=== PATIENT | male | born 1985 | race Caucasian/White ===

== ENCOUNTER → 2016-12-08 | Outpatient (CLI) | payer BC ==
--- NOTE | 2016-12-08 10:53 | US ---
EXAMINATION TYPE: US liver DATE OF EXAM: 12/08/2016 8:25 AM COMPARISON: NONE CLINICAL HISTORY: R74.8 elevated liver enzymes. EXAM MEASUREMENTS: Liver Length: 16.9 cm Gallbladder Wall: 0.3 cm CBD: 0.3 cm Right Kidney: 11.9 x 4.2 x 5.2 cm TECHNOLOGIST IMPRESSION: Pancreas: obscured by overlying bowel Liver: attenuating, hypoechoic area adjacent to GB = 2.0 x 1.7 x 2.7cm, probable focal sparing Gallbladder: no evidence of stones Evidence for sonographic Aiken's sign: No CBD: wnl Right Kidney: no evidence of hydronephrosis or mass IMPRESSION: 1. No acute changes abdomen right upper quadrant ultrasound. 2. Some fatty sparing may be adjacent to the gallbladder bed fossa within the liver. 3. Mild fatty infiltration of the liver
== END | disposition home or self-care (01) ==
LOC: RADUSWWP 08:06
PROVIDERS: ATTEND Family Medicine
DX: R74.8 Abnormal levels of other serum enzymes (principal)
CPT/HCPCS: 76705

== ENCOUNTER → 2017-09-22 | Outpatient (CLI) | payer BC ==
[2017-09-22 18:29] LABS: Basophils # (A) 0.1 k/uL (0-0.2); Basophils % (A) 1 %; CH 29.7; CHCM 34.5; Eosinophils # (A) 0.2 k/uL (0-0.7); Eosinophils % (A) 3 %; HCT 53.3 % (39.0-53.0); HDW 2.78; HGB 17.7 gm/dL (13.0-17.5); Luc % (Auto) 1; Lymphocytes # (A) 2.6 k/uL (1.0-4.8); Lymphocytes % (A) 37 %; MCH 28.8 pg (25.0-35.0); MCHC 33.3 g/dL (31.0-37.0); MCV 86.4 fL (80.0-100.0); Mean Platelet Volume 9.5; Monocytes # (A) 0.3 k/uL (0-1.0); Monocytes % (A) 4 %; Neutrophils # (A) 3.8 k/uL (1.3-7.7); Neutrophils % (A) 54 %; RBC 6.17 m/uL (4.30-5.90); RDW 13.9 % (11.5-15.5); WBC 7.1 k/uL (3.8-10.6); WBC (Perox) 7.31
[2017-09-22 18:37] LABS: ALT 74 U/L (21-72); AST 45 U/L (17-59); Alkaline Phosphatase 94 U/L (38-126); Anion Gap 11 mmol/L; Blood Urea Nitrogen 15 mg/dL (9-20); Carbon Dioxide 26 mmol/L (22-30); Chloride 102 mmol/L (98-107); Cholesterol 202 mg/dL (<200); Glucose 79 mg/dL (74-99); HDL Cholesterol 37 mg/dL (40-60); Non-African American GFR(MDRD) >60 (>60 ml/min/1.73 sqM); Sodium 139 mmol/L (137-145); Total Bilirubin 0.6 mg/dL (0.2-1.3); Total Protein 7.8 g/dL (6.3-8.2)
== END ==
LOC: MMGSC 11:00
PROVIDERS: ATTEND Family Medicine
DX: Z00.00 Encounter for general adult medical examination without abnormal findings (principal); I10 Essential (primary) hypertension
CPT/HCPCS: 36415; 80053; 80061; 84439; 84443; 85025

== ENCOUNTER → 2017-10-07 | Outpatient (CLI) | payer BC ==
[2017-10-07 16:30] LABS: ALT 75 U/L (21-72); AST 40 U/L (17-59); Albumin 4.5 g/dL (3.5-5.0); Alkaline Phosphatase 92 U/L (38-126); Anion Gap 11 mmol/L; Blood Urea Nitrogen 17 mg/dL (9-20); Carbon Dioxide 27 mmol/L (22-30); Chloride 104 mmol/L (98-107); Glucose 89 mg/dL (74-99); Potassium 4.4 mmol/L (3.5-5.1); Sodium 142 mmol/L (137-145); Total Bilirubin 0.9 mg/dL (0.2-1.3); Total Protein 7.6 g/dL (6.3-8.2)
== END | disposition home or self-care (01) ==
LOC: MMGSC 10:11
PROVIDERS: ATTEND Family Medicine
DX: M25.50 Pain in unspecified joint (principal); Z51.81 Encounter for therapeutic drug level monitoring
CPT/HCPCS: 36415; 80053; 86431

== ENCOUNTER → 2019-04-23 | Outpatient (CLI) | payer BC ==
--- NOTE | 2019-04-23 13:39 | US ---
EXAMINATION TYPE: US abdomen complete DATE OF EXAM: 04/23/2019 COMPARISON: US 2017 CLINICAL HISTORY: left side abdominal pain R10.9. Left abdomen pain x 1 week EXAM MEASUREMENTS: Liver Length: 15.1 cm Gallbladder Wall: 0.3 cm CBD: 0.5 cm Spleen: 14.5 cm Right Kidney: 10.8 x 5.4 x 5.8 cm Left Kidney: 10.8 x 5.5 x 4.5 cm Pancreas: visualized portions wnl, limited by overlying midline bowel gas Liver: attenuating, increased echogenicity, heterogeneous with 1.5 x 1.0cm hypoechoic area adjacent to gallbladder Gallbladder: wnl Evidence for sonographic Aiken's sign: no CBD: visualized portions wnl, limited by overlying bowel gas Spleen: enlarged Right Kidney: wnl Left Kidney: wnl Upper IVC: wnl Abd Aorta: visualized portions wnl, limited by overlying midline bowel gas Scanned left flank/LLQ at patient's area of concern: no abnormality seen at this time. The liver is heterogenous with areas of focal fatty sparing adjacent to the gallbladder fossa. The in trahepatic portion of the IVC and proximal abdominal aorta are within normal limits. There is no laura dence of cholelithiasis. Common bile duct is unremarkable. The visualized portions of the pancreas are homogenous. Kidneys are symmetric and free of hydronephrosis. No renal lesions are seen. IMPRESSION: 1. Hepatic steatosis with areas of focal fatty sparing. 2. Splenomegaly.
== END | disposition home or self-care (01) ==
LOC: RADUSWWP 08:54
PROVIDERS: ATTEND Family Medicine
DX: K76.0 Fatty (change of) liver, not elsewhere classified (principal); R16.1 Splenomegaly, not elsewhere classified
CPT/HCPCS: 76700

== ENCOUNTER → 2020-09-23 | Outpatient (CLI) | payer BC | END | disposition home or self-care (01) | LOC: RADMRIMAIN 13:19 | PROVIDERS: ATTEND Orthopaedic Surgery | DX: Z53.9 Procedure and treatment not carried out, unspecified reason (principal) ==

== ENCOUNTER 2021-09-06 11:11 | Emergency (ER) | payer BC ==
--- NOTE | 2021-09-06 12:41 | XR ---
EXAMINATION TYPE: XR chest 1V portable DATE OF EXAM: 09/06/2021 COMPARISON: NONE HISTORY: Cough TECHNIQUE: Single frontal view of the chest is obtained. FINDINGS: Perihilar infiltrates compatible with underlying pneumonia. The cardiac silhouette size is within normal limits. The osseous structures are intact. IMPRESSION: 1. Perihilar infiltrates compatible with underlying pneumonia.
--- NOTE | 2021-09-06 12:48 | ED ---
General Adult HPI - General Chief complaint: Upper Respiratory Infection Stated complaint: LUCA Time Seen by Provider: 09/06/21 12:13 Source: patient, RN notes reviewed, old records reviewed Mode of arrival: ambulatory Limitations: no limitations - History of Present Illness Initial comments: 35 yo male who was recently diagnosed with influenza presents for evaluation of cough and dyspnea. Patient states that on Tuesday which was 5 days ago the patient was seen by his primary care physician and diagnosed with influenza. He was started on Tamiflu. He states that after 2 days his initial symptoms which were predominantly nausea and diarrhea had resolved and over the past 48 hours he developed cough, congestion, dyspnea. Patient has had subjective fever and chills. His vomiting and diarrhea has resolved. He has no chronic medical conditions. - Related Data Home Medications Medication Instructions Recorded Confirmed Ascorbic Acid [Vitamin C] 1,000 mg PO DAILY 09/06/21 09/06/21 Cholecalciferol [Vitamin D3 (25 50 mcg PO DAILY 09/06/21 09/06/21 Mcg = 1000 Iu)] Zinc 50 mg PO DAILY 09/06/21 09/06/21 Previous Rx's Medication Instructions Recorded Dexamethasone [Decadron] 6 mg PO DAILY #5 tablet 09/06/21 Allergies Allergy/AdvReac Type Severity Reaction Status Date / Time No Known Allergies Allergy Verified 09/06/21 13:31 Review of Systems ROS Statement: Those systems with pertinent positive or pertinent negative responses have been documented in the HPI. ROS Other: All systems not noted in ROS Statement are negative. Past Medical History Past Medical History: No Reported History History of Any Multi-Drug Resistant Organisms: None Reported Past Surgical History: No Surgical Hx Reported Past Psychological History: No Psychological Hx Reported Smoking Status: Never smoker Past Alcohol Use History: None Reported Past Drug Use History: None Reported General Exam Limitations: no limitations General appearance: alert, in no apparent distress Head exam: Present: atraumatic, normocephalic Eye exam: Present: normal appearance, PERRL ENT exam: Present: normal exam Neck exam: Present: normal inspection. Absent: tenderness, meningismus Respiratory exam: Present: normal lung sounds bilaterally. Absent: respiratory distress, wheezes, rales Cardiovascular Exam: Present: regular rate, normal rhythm GI/Abdominal exam: Present: soft. Absent: distended, tenderness, guarding Extremities exam: Present: normal inspection, normal capillary refill. Absent: pedal edema Neurological exam: Present: alert, oriented X3, CN II-XII intact. Absent: motor sensory deficit Psychiatric exam: Present: normal affect, normal mood Skin exam: Present: warm, dry, intact. Absent: cyanosis, diaphoretic Course Vital Signs 09/06/21 11:56 Temperature 99 F Pulse Rate 94 Respiratory 24 Rate Blood Pressure 147/102 O2 Sat by Pulse 96 Oximetry Medical Decision Making - Medical Decision Making 35 yo male presenting with viral syndrome, cough, congestion, nausea and diarrhea. He was tested positive for influenza at an outpatient clinic. He was prescribed Tamiflu. He states over the past 48 hours she's had increased cough and mild dyspnea. Patient does test positive for coronavirus and does meet for monoclonal antibody infusion which is transfused in the emergency department. His chest x-ray does show a bilateral pneumonia consistent with coronavirus pneumonia worse on the left. Patient is started on Decadron in addition to monoclonal antibody infusion. He is given strict return parameters. He is currently taking vitamin C, vitamin D, and zinc. He will quarantine. - Lab Data Lab Results 09/06/21 09/06/21 Range/Units 12:02 13:02 Coronavirus (PCR) Detected A (Not Detectd) Influenza Type A RNA Not Detected (Not Detectd) Influenza Type B (PCR) Not Detected (Not Detectd) Disposition Clinical Impression: COVID-19 Disposition: HOME SELF-CARE Condition: Fair Instructions (If sedation given, give patient instructions): Coronavirus Disease 2019 (COVID-19) Prescriptions: Dexamethasone [Decadron] 6 mg PO DAILY #5 tablet Is patient prescribed a controlled substance at d/c from ED?: No Referrals: Kajal Duval MD [Primary Care Provider] - 1-2 days Time of Disposition: 14:45
[2021-09-06] MEDS ORDERED: dexAMETHasone 2 MG TAB PO STA (12:56)
[2021-09-06] MEDS ORDERED: SODIUM CHLORIDE 0.9% 50 ML IVPB ONE (13:30)
[2021-09-06] MEDS ORDERED: SOTROVIMAB (EUA) 500 MG in SODIUM CHLORIDE 0.9% 100 ML IVPB ONE (13:30)
[2021-09-06 15:18] VITALS: RESP 22
[2021-09-06 15:20] VITALS: BP 164/95; PULSE 83; TEMP 98
== END 2021-09-06 15:15 | disposition home or self-care (01) ==
LOC: EC 11:11
DX: U07.1 COVID-19 (principal)
CPT/HCPCS: 99285; 87502; 87635; 71045; J8540; Q0247

== ENCOUNTER → 2024-08-28 | Outpatient (CLI) | payer SELFPAY ==
--- NOTE | 2024-08-28 16:05 | CT ---
EXAMINATION TYPE: CT heart w calcium score DATE OF EXAM: 08/28/2024 COMPARISON: None CLINICAL INDICATION: Male, 38 years old with history of Z13.9 Screening for cardiovascular disorders; PHH, Screening for cardiovascular disorders. Family hx of heart disease. TECHNIQUE: Prospective Gating was used. Slice thickness: 3mm. Density threshold (HU): 130, Pixel threshold: 3, Algorithm: discrete. CT DLP: 271.[address] CTDI: mGy Automated exposure control for dose reduction was used. FINDINGS: CT CALCIUM SCORING Coronary calcium is a marker for plaque (fatty deposits) in a blood vessel or atherosclerosis (harden ing of the arteries). The presence and amount of calcium detected in a coronary artery by the CT sca n, indicates the presence and amount of atherosclerotic plaque. These calcium deposits appear years before the development of heart disease symptoms such as chest pain and shortness of breath. A calcium score is computed for each of the coronary arteries based upon the volume and density of th e calcium deposits. This can be referred to as your calcified plaque burden. It does not correspond directly to the percentage of narrowing in the artery but does correlate with the severity of the un derlying coronary atherosclerosis. RESULTS Region: LM Calcium Score ([place]): 0 Volume (mm3): 0 Mass (g): 0 Region: RCA Calcium Score ([place]): 0 Volume (mm3): 0 Mass (g): 0 Region: LAD Calcium Score ([place]): 0 Volume (mm3): 0 Mass (g): 0 Region: CX Calcium Score ([place]): 0 Volume (mm3): 0 Mass (g): 0 Region: PDA Calcium Score ([place]): 0 Volume (mm3): 0 Mass (g): 0 Total: Calcium Score ([place]): 0 Volume (mm3): 0 Mass (g): 0 TOTAL CALCIUM SCORE: 0 IMPRESSION: Calcium Score: 0 Implication: No identifiable plaque. Risk of Coronary Artery Disease: Very low, generally less than 5%. CALCIUM SCORE IMPLICATION RISK OF C ORONARY ARTERY DISEASE 0 No identifiable plaque Very low, generally less than 5% 1-10 Minimal identifiable plaque Very unlikely, less than 10% 11-100 Definite, at least mild atherosclerotic plaque Mild or m inimal coronary narrowings likely 101-400 Definite, at least moderate atherosclerotic plaque Mild coronary ar alonso disease highly likely, significant narrowing possible 401 or Higher Extensive atherosclerotic plaque High lik elihood of at least one significant coronary narrowing [facility], , 08/28/2024 4:03 PM
== END | disposition home or self-care (01) ==
LOC: RADCTMAIN 14:52
PROVIDERS: ATTEND Family Medicine
DX: Z13.6 Encounter for screening for cardiovascular disorders (principal); I25.10 Atherosclerotic heart disease of native coronary artery without angina pectoris; Z82.49 Family history of ischemic heart disease and other diseases of the circulatory system
CPT/HCPCS: 75571